=== PATIENT | female | born 1945 | race Caucasian/White ===

== ENCOUNTER → 2024-02-05 15:05 | Outpatient (REF) | payer OTHER, SELFPAY | LOC: HWRAD 15:05 | PROVIDERS: ATTENDING PHYSICIAN Internal Medicine Geriatric Medicine | DX: M81.0 Age-related osteoporosis without current pathological fracture (principal); Z12.31 Encounter for screening mammogram for malignant neoplasm of breast | CPT/HCPCS: 77063; 77067; 77080 ==

== ENCOUNTER → 2024-04-22 12:54 | Outpatient (REF) | payer OTHER, SELFPAY | LOC: HWRAD 12:54 | PROVIDERS: ATTENDING PHYSICIAN Internal Medicine Geriatric Medicine | DX: E78.2 Mixed hyperlipidemia (principal); M81.0 Age-related osteoporosis without current pathological fracture; R20.2 Paresthesia of skin; E55.9 Vitamin D deficiency, unspecified; R79.89 Other specified abnormal findings of blood chemistry; Z13.89 Encounter for screening for other disorder; N20.0 Calculus of kidney | CPT/HCPCS: 76770 ==

== ENCOUNTER 2025-02-17 13:31 | Outpatient (RCR) | payer OTHER, SELFPAY ==
[2025-02-17 13:35] VITALS: BP 143/85
[2025-02-17] MEDS: RECLAST 100 IV (13:53)
[2025-02-17 14:17] VITALS: BP 143/80
== END 2025-02-19 23:59 | disposition home or self-care (01) ==
LOC: OID 13:31
PROVIDERS: ATTENDING PHYSICIAN Internal Medicine Geriatric Medicine
DX: M81.0 Age-related osteoporosis without current pathological fracture (principal)
CPT/HCPCS: 96365; J3489